=== PATIENT | female | born 1960 | race Two or more races ===

== ENCOUNTER 2019-04-24 07:36 | Emergency (ER) | payer SELFPAY ==
[~2019-04-24] VITALS: Ht 175.3 cm; Wt 113.4 kg
[2019-04-24] MEDS ORDERED: IOHEXOL 300 MG/ML 100ML BOTTLE IJ ONE (08:47)
[2019-04-24] MEDS ORDERED: cloNIDine HCL 0.1 MG TAB PO ONE (10:15)
[2019-04-24 11:07] VITALS: BP 156/92
== END 2019-04-24 11:32 | disposition home or self-care (01) ==
LOC: EDBD 07:36 → ER 07:36
DX: M50.30 Other cervical disc degeneration, unspecified cervical region (principal); I10 Essential (primary) hypertension; Z90.49 Acquired absence of other specified parts of digestive tract; V43.62XA Car passenger injured in collision with other type car in traffic accident, initial encounter; Y93.89 Activity, other specified; Y99.8 Other external cause status; Y92.410 Unspecified street and highway as the place of occurrence of the external cause
CPT/HCPCS: 71260; 72125; 72131; 74177; 99285; Q9967